=== PATIENT | female | born 1960 | race Caucasian/White ===

== ENCOUNTER → 2016-09-07 17:05 | Outpatient (CLI) | payer BC | END | disposition home or self-care (01) | LOC: D.MAMMO 16:00 | DX: Z12.31 Encounter for screening mammogram for malignant neoplasm of breast (principal) ==

== ENCOUNTER → 2016-10-21 17:54 | Outpatient (CLI) | payer BC | END | disposition home or self-care (01) | LOC: D.MAMMO 15:00 | DX: N64.89 Other specified disorders of breast (principal) ==

== ENCOUNTER → 2017-09-07 16:46 | Outpatient (CLI) | payer BC | END | disposition home or self-care (01) | LOC: D.LABREF 16:46 | DX: I95.9 Hypotension, unspecified (principal) ==

== ENCOUNTER → 2018-05-15 23:04 | Outpatient (CLI) | payer BC | END | disposition home or self-care (01) | LOC: D.MAMMO 15:30 | DX: Z12.31 Encounter for screening mammogram for malignant neoplasm of breast (principal) ==

== ENCOUNTER 2018-06-30 09:12 | Day surgery (SDC) | payer BC ==
[~2018-06-30] VITALS: Ht 170.2 cm; Wt 85.3 kg
[2018-06-30 10:00] LABS: BASOPHILS 0.1 % (0-2); EOSINOPHILS 0.1 % (0-7); HEMATOCRIT 38.4 % (36.0-48.0); HEMOGLOBIN 13.1 g/dL (12-16); IMMATURE GRANULOCYTES 0.1 % (0-5); LYMPHOCYTES 18.3 % (15-50); MCH 31.6 pg (26.0-34.0); MCHC 34.1 g/dL (31.0-37.0); MCV 92.8 fL (80.0-100.0); MONOCYTES 6.7 % (2-11); NEUTROPHILS 74.7 % (40-80); PLATELET COUNT 342 10x3/uL (130-400); RBC 4.14 10x6/uL (4.00-5.40); RDW 12.5 % (11.5-14.5); WBC 9.7 10x3/uL (4.8-10.8)
[2018-06-30 10:11] LABS: CALC OSMOLALITY 277 mosm/kg (275-300); CALCIUM 8.8 mg/dL (8.5-10.1); CARBON DIOXIDE 27.8 mmol/L (21.0-32.0); CHLORIDE - SERUM 102 mmol/L (98-107); CREATININE - SERUM 0.7 mg/dL (0.6-1.3); GLUCOSE 92 mg/dL (74-106); POTASSIUM - SERUM 4.2 mmol/L (3.5-5.1); SODIUM 140 mmol/L (136-145); UREA NITROGEN 9 mg/dL (7-18); eGFR NON AFRICAN AMERICAN > 90 mL/min (90-120)
[2018-06-30 11:26] VITALS: BP 125/69; Ht 170.2 cm; Wt 85.3 kg
[2018-06-30] MEDS ORDERED: NORCO 10-325 TA1 TAB PO (14:39)
--- NOTE | 2018-06-30 15:54 | NUR ---
DC INSTRUCTIONS GIVEN TO PT/FAMILY. STATES UNDERSTANDING. DC'D IV CATH FULLY INTACT.
--- NOTE | 2018-06-30 16:08 | NUR ---
PT LEFT UNIT VIA WC AT 1600
--- NOTE | 2018-07-03 17:55 | OP ---
PATIENT NAME: MARIA D HODGE MEDICAL RECORD: [id number] :60 LOCATION:D.OPS ADMISSION DATE: SURGEON: OLEGARIO VALDERRAMA MD DATE OF OPERATION: 06/30/2018 PREOPERATIVE DIAGNOSES: 1. Anal pain. 2. Posterior anal mass. POSTOPERATIVE DIAGNOSES: 1. Anal pain. 2. Posterior anal mass. PROCEDURE: Anal exam under anesthesia with anal skin biopsy. SURGEON: Olegario Valderrama MD REPORT OF PROCEDURE: The patient was placed in lithotomy position. The perianal region was prepped and draped in sterile fashion. A 360-degree inspection was performed of the anus with Hill-Cross anoscope. The posterior aspect of the anus extending from the 4 o'clock to the 8 o'clock position had this firm mass, mainly in the subcutaneous tissues, but it was tethering down the skin of the posterior anus at the 6 o'clock position. This extended up about 3 cm into the anus and did not appear to be extending out into the anoderm. This did not appear to be inflammatory in nature. It was very firm and did not appear to have any fluid present. The tissue was mobile. I did not see any evidence of fissure or fistula. I did not see any evidence of hemorrhoids. A skin biopsy was performed at the 6 o'clock position just to the left of midline, incorporating some of the skin and this firm subcutaneous tissues. This was all sent off for permanent specimen. The wound was then irrigated out with normal saline and the surrounding skin was infused with Marcaine with epinephrine. Dressing was applied to the area. COMPLICATIONS: None. CONDITION: Stable. ANESTHESIA: General endotracheal and local. BLOOD LOSS: Minimal. TRANSINT:[id number] Voice Confirmation ID: [id number] DOCUMENT ID: [id number] OLEGARIO VALDERRAMA MD at 1752 CC: FELIPE MCGHEE and MIRANDA COLON DO [id number] DICTATION DATE: 06/30/18 1443 [employer] CAR LOADER: 06/30/18 2219 [facility] 06/30/18 [id number] [place] [address]
== END 2018-06-30 16:00 | disposition home or self-care (01) ==
LOC: D.OPS 09:12 → D.PAN 11:45 → D.OPS 16:00
PROVIDERS: Surgery
DX: C44.520 Squamous cell carcinoma of anal skin (principal); Z01.812 Encounter for preprocedural laboratory examination

== ENCOUNTER → 2018-07-06 12:05 | Outpatient (CLI) | payer BC ==
[2018-06-30 11:26] VITALS: BMI 28.2
[~2018-07-06 12:05] MED LIST: NORCO 10-325 TA1 TAB PO
== END | disposition home or self-care (01) ==
LOC: D.CT 12:05
DX: C21.0 Malignant neoplasm of anus, unspecified (principal)

== ENCOUNTER 2018-07-27 07:13 | Day surgery (SDC) | payer BC ==
[~2018-07-27] VITALS: Ht 170.2 cm; Wt 83.0 kg
--- NOTE | ~2018-07-27 | OP ---
PATIENT NAME: MARIA D HODGE MEDICAL RECORD: [id number] :60 LOCATION:D.OPS ADMISSION DATE: SURGEON: OLEGARIO VALDERRAMA MD DATE OF OPERATION: 07/27/2018 PREOPERATIVE DIAGNOSIS: Anal squamous cell carcinoma. POSTOPERATIVE DIAGNOSIS: Anal squamous cell carcinoma. PROCEDURE: Left subclavian vein PowerPort placement with fluoroscopic interpretation. SURGEON: Olegario Valderrama MD REPORT OF PROCEDURE: The patient's left chest was prepped and draped in sterile fashion. A needle was used to cannulate the left subclavian vein and a guidewire was advanced with ease. Fluoro was used to note that the wire was in good position in the venous system. A skin incision was made on the left superior lateral chest and a subcutaneous pouch was made over the pectoral fascia. The catheter was tunneled between this pouch and the wire exit site. The port was then sutured to the fascia using interrupted 3-0 Prolene. The catheter was cut with a beveled tip at 22 cm. The dilator trocar device placed over the wire and the wire and dilator were removed. The catheter tip was advanced through the trocar. The trocar was removed. The catheter tip was noted to be resting in good position at the right atrial superior vena caval junction. The catheter aspirated nonpulsatile dark blood and flushed easily with heparinized saline. The subcutaneous tissues were then reapproximated with interrupted 3-0 Vicryl and the skin was closed with running subcutaneous 5-0 Monocryl. COMPLICATIONS: None. CONDITION: Stable. ANESTHESIA: General endotracheal and local. BLOOD LOSS: Minimal. TRANSINT:[id number] Voice Confirmation ID: [id number] DOCUMENT ID: [id number] OLEGARIO VALDERRAMA MD CC: FELIPE MCGHEE PRUITT, DAVID and FELIPE OGDEN MD [id number] DICTATION DATE: 07/27/18 1039 EXAMINATION SCORER: 07/27/18 [id number] [place] [address]
[2018-07-27 07:42] LABS: BASOPHILS 0.3 % (0-2); EOSINOPHILS 1.3 % (0-7); HEMATOCRIT 38.1 % (36.0-48.0); HEMOGLOBIN 12.7 g/dL (12-16); IMMATURE GRANULOCYTES 0.5 % (0-5); LYMPHOCYTES 28.9 % (15-50); MCHC 33.3 g/dL (31.0-37.0); MCV 92.9 fL (80.0-100.0); MONOCYTES 6.3 % (2-11); NEUTROPHILS 62.7 % (40-80); PLATELET COUNT 309 10x3/uL (130-400); RDW 13.2 % (11.5-14.5); WBC 6.3 10x3/uL (4.8-10.8)
[2018-07-27] MEDS ORDERED: ZOFRAN8 MG PO (07:55)
[2018-07-27] MEDS ORDERED: EMLA CREAM 30 G30 G1 TOPICAL (07:56)
[2018-07-27] MEDS ORDERED: NORCO 10-325 TA1 TAB PO ×2 (07:57→10:36)
[2018-07-27 07:58] VITALS: BP 109/61; Ht 170.2 cm; Wt 83.0 kg
[2018-07-27 08:01] LABS: ANION GAP 13.8 mmol/L (8-16); CALCIUM 8.9 mg/dL (8.5-10.1); CARBON DIOXIDE 27.5 mmol/L (21.0-32.0); CREATININE - SERUM 0.9 mg/dL (0.6-1.3); POTASSIUM - SERUM 4.3 mmol/L (3.5-5.1)
--- NOTE | 2018-07-27 12:35 | NUR ---
LEFT HAND PIV DC'D WITH TIP INTACT. PATIENT DRESSING IN PERSONAL CLOTHING WITH SPOUSE IN ROOM
== END 2018-07-27 12:50 | disposition home or self-care (01) ==
LOC: D.OPS 07:13
PROVIDERS: Surgery
DX: C20 Malignant neoplasm of rectum (principal)

== ENCOUNTER 2019-05-16 09:00 | Outpatient (CLI) | payer BC ==
[2018-07-27 07:58] VITALS: BMI 28.7
[~2019-05-16 09:00] MED LIST changes: +EMLA CREAM 30 G30 G1 TOPICAL; +ZOFRAN8 MG PO
== END 2019-05-16 10:00 | disposition home or self-care (01) ==
LOC: D.MAMMO 09:00
PROVIDERS: ATTEND Family Medicine
DX: Z12.31 Encounter for screening mammogram for malignant neoplasm of breast (principal)